=== PATIENT | female | born 1980 ===

== ENCOUNTER 2023-03-11 09:55 | Day surgery (SDC) | payer OTHER ==
[~2023-03-11] VITALS: Ht 167.6 cm; Wt 108.7 kg
[~2023-03-11 09:55] MED LIST: ALBU90OI INH
[2023-03-11] MEDS ORDERED: OMEP20ER PO (10:14)
[2023-03-11] MEDS ORDERED: CYCL10 PO (10:15)
[2023-03-11] MEDS ORDERED: Pepcid40 MG PO (10:15)
[2023-03-11 10:26] VITALS: BP 90/74
--- NOTE | 2023-03-11 10:43 | NUR ---
History, Chart, Medications and Allergies reviewed before start of procedure. Lungs clear T/O to Auscultation. Patient confirms NPO status and agrees with scheduled surgery. Pre-Op teaching done. Pt verbalizes understanding. Patient States Post-Procedure ride home has been arranged. PTS URINE TO [place], PT REPORTS THAT HER HAS HAD A VASECTOMY AND THAT THERE IS NO WAY SHE COULD BE . DISCUSSED WITH DR. HUNT. PT AGREES TO SIGN FORM FOR REFUSAL FOR TEST FOR ADDITIONAL SERUM BLOOD TESTING.
--- NOTE | 2023-03-11 11:22 | NUR ---
03/11/23 1122 Alphonso Deng History, Chart, Medications and Allergies reviewed before start of procedure. MONITOR INTACT WITH CONTINUOUS PULSE OXIMETRY, CONTINUOUS END TITAL CO2, AND INTERMITTENT BLOOD PRESSURE. 3-LEAD EKG REVIEWED WITH PHYSICIAN PRIOR TO START OF PROCEDURE. O2 VIA N/C INTACT THROUGHOUT SEDATION/PROCEDURE. Bite Block Placed.
[2023-03-11 11:39] VITALS: BP 102/52
[2023-03-11 11:48] VITALS: BP 104/76
--- NOTE | 2023-03-11 11:54 | NUR ---
Discharge instructions reviewed with patient. Patient verbalizes understanding. Copy given to patient to take home. Patient States Post-Procedure ride home has been arranged. T[employer]ER[employer]. Discharged via wheelchair to private car for ride home.
== END 2023-03-11 11:50 | disposition home or self-care (01) ==
LOC: ORSCMMR 09:55 → ORD 11:30 → ORSCMMR 11:30
PROVIDERS: Specialist
PROC: 0DB68ZX Excision of Stomach, Via Natural or Artificial Opening Endoscopic, Diagnostic (ICD-10-PCS; principal; 2023-03-11 11:30)
PROC: 0DB58ZX Excision of Esophagus, Via Natural or Artificial Opening Endoscopic, Diagnostic (ICD-10-PCS; principal; 2023-03-11 11:30)
DX: K21.9 Gastro-esophageal reflux disease without esophagitis (principal); K44.9 Diaphragmatic hernia without obstruction or gangrene; K22.10 Ulcer of esophagus without bleeding; E66.01 Morbid (severe) obesity due to excess calories; Z68.39 Body mass index [BMI] 39.0-39.9, adult; F17.210 Nicotine dependence, cigarettes, uncomplicated; Z79.899 Other long term (current) drug therapy
CPT/HCPCS: 88305; 88342; J2704; J7120

== ENCOUNTER 2023-07-05 19:06 | Emergency (ER) | payer OTHER ==
[~2023-07-05] VITALS: Ht 165.1 cm; Wt 106.6 kg
[~2023-07-05 19:06] MED LIST changes: +CYCL10 PO; +OMEP20ER PO; +Pepcid40 MG PO
[2023-07-05] MEDS ORDERED: Ketorolac Tromethamine 15mg Vial IV ONE (19:50)
[2023-07-05 20:00] LABS: BASOPHILS ABSOLUTE AUTO 0.05 K/mm3 (0.00-0.23); BASOPHILS PERCENT AUTO 0 % (0-2); EOSINOPHILS ABSOLUTE AUTO 0.21 K/mm3 (0.00-0.68); EOSINOPHILS PERCENT AUTO 2 % (0-6); Hematocrit 40.9 % (33.0-51.0); Hemoglobin 13.5 g/dL (11.5-16.0); IMMATURE GRAN ABSOLUTE AUTO 0.03 K/mm3 (0.00-0.10); IMMATURE GRAN PERCENT AUTO 0 % (0-1); LYMPHOCYTES ABSOLUTE AUTO 2.44 K/mm3 (0.84-5.20); LYMPHOCYTES PERCENT AUTO 21 % (21-46); MONOCYTES ABSOLUTE AUTO 0.59 K/mm3 (0.16-1.47); MONOCYTES PERCENT AUTO 5 % (4-13); Mean Corpuscular HGB 28.6 pg (26.0-34.0); Mean Corpuscular Volume 87 fL (80-100); Mean Platelet Volume 11.3 fL (9.1-12.4); NEUTROPHILS ABSOLUTE AUTO 8.25 K/mm3 (1.96-9.15); NEUTROPHILS PERCENT AUTO 71 % (41-73); Platelet Count 241 K/mm3 (150-400); RDW Coefficient Variation 13.5 % (11.7-14.2); RDW Standard Deviation 42.9 fL (35.1-46.3); Red Blood Cell Count 4.72 M/mm3 (3.80-5.20); White Blood Cell Count 11.57 K/mm3 (4.00-11.30)
[2023-07-05 20:20] LABS: Alanine Aminotransfer (ALT/SGP 21 U/L (12-78); Albumin, Blood 3.8 g/dL (3.4-5.0); Alk Phos 126 U/L (50-136); Anion Gap 1 mmol/L (6-16); Aspartate Aminotrans (AST/SGOT 8 U/L (12-37); Beta HCG, Quantitative, Serum <1 mIU/mL (0-3); Bilirubin, Total 0.5 mg/dL (0.1-1.0); Blood Urea Nitrogen 13 mg/dL (8-24); Bun/Creatinine Ratio 14.3 (12.0-20.0); CO2, Blood 28 mmol/L (21-32); Calcium, Blood 9.2 mg/dL (8.5-10.1); Chloride, Blood 109 mmol/L (98-108); Creatinine, Blood 0.91 mg/dL (0.40-1.00); Globulin, Blood 3.8 g/dL (2.2-4.0); Glomerular Filtration Rate 81 (60-); Glucose, Blood 114 mg/dL (70-99); Potassium, Blood 4.1 mmol/L (3.5-5.5); Sodium, Blood 138 mmol/L (136-145); Total Protein, Blood 7.6 g/dL (6.4-8.2)
[2023-07-05 20:40] LABS: Source, Urine Clean Catch
[2023-07-05 20:45] LABS: Bilirubin, Urine Neg (Neg); Blood, Urine Neg (Neg); Glucose Qualitative, Urine Neg (Neg); Ketones, Urine Neg (Neg); Leukocyte Esterase, Urine 1+ (Neg); Nitrite, Urine Neg (Neg); Protein, Urine Neg (Neg); Specific Gravity, Urine 1.015 (1.003-1.022); Urobilinogen, Urine NORM (Normal)
[2023-07-05 21:01] LABS: Appearance, Urine Clear (Clear); Color, Urine Yellow (P-Yellow)
[2023-07-05 21:02] LABS: Bacteria Few /hpf; Red Blood Cells, Urine 0-2 /hpf (0-2); Squamous Epithelial Cells Few /hpf (Few)
[2023-07-05] MEDS ORDERED: HYDROmorphone HCl/Pf 1MG SYR IV ONE (21:15)
[2023-07-05] MEDS ORDERED: Ondansetron HCl 2 MG / ML 2ML Vial IV ONE (22:35)
[2023-07-05] MEDS ORDERED: CefTRIAXone Sodium 1,000 MG in NS 50 ML IV ONE (22:35)
[2023-07-05] MEDS ORDERED: Morphine Sulfate 4 MG/1 ML Injection IV ONE (22:35)
[2023-07-06] MEDS ORDERED: Morphine Sulfate 10 MG/ML 1MLSYR IV ONE (00:40)
[2023-07-06] MEDS ORDERED: NS 1,000 ML IV SCH (00:40)
[2023-07-06 02:00] VITALS: BP 110/71
[2023-07-06] MEDS ORDERED: CEPH500 PO (02:51)
== END 2023-07-06 03:05 | disposition home or self-care (01) ==
LOC: ER 19:06
PROVIDERS: Student in an Organized Health Care Education/Training Program
DX: N39.0 Urinary tract infection, site not specified (principal); E86.0 Dehydration; D72.829 Elevated white blood cell count, unspecified; Z79.899 Other long term (current) drug therapy
CPT/HCPCS: 74177; 76830; 76856; 80053; 81001; 83690; 84702; 85025; 87086; 96361; 96365-59; 96375; 96376; 99284-25; A9270; J0696; J1170; J1885; J2270; J2405; J7030; Q9967

== ENCOUNTER → 2023-07-17 | Outpatient (CLI) | payer OTHER ==
[~2023-07-17] MED LIST changes: +CEPH500 PO
== END ==
LOC: LAB SHORT 12:10
DX: J02.9 Acute pharyngitis, unspecified (principal)
CPT/HCPCS: 87081

== ENCOUNTER → 2024-01-19 | Outpatient (CLI) | payer OTHER ==
[2024-01-19 19:54] LABS: Adenovirus F 40/41 Not Detected (NOT DETECT); Astrovirus Not Detected (NOT DETECT); Campylobacter Sp Not Detected (NOT DETECT); Cryptosporidium Not Detected (NOT DETECT); Cyclospora Cayetanensis Not Detected (NOT DETECT); E. Coli O157 Not Detected (NOT DETECT); Entamoeba Histolytica Not Detected (NOT DETECT); Enteroaggregative E. coli-EAEC Not Detected (NOT DETECT); Enteropathogenic E. coli-EPEC Not Detected (NOT DETECT); Enterotoxigenic E. coli-ETEC Not Detected (NOT DETECT); Giardia Lamblia Not Detected (NOT DETECT); Norovirus GI/GII Not Detected (NOT DETECT); Plesiomonas Shigelloides Not Detected (NOT DETECT); Rotavirus A Not Detected (NOT DETECT); Salmonella Sp Not Detected (NOT DETECT); Sapovirus Not Detected (NOT DETECT); Shiga Toxin-prod E. coli-STEC Not Detected (NOT DETECT); Shigella/Enteroin E. coli-EIEC Not Detected (NOT DETECT); Vibrio Cholerae Not Detected (NOT DETECT); Vibrio Sp Not Detected (NOT DETECT); Yersinia Enterocolitica Not Detected (NOT DETECT)
== END ==
LOC: LAB 15:07 → LAB SHORT 15:07
PROVIDERS: Family Medicine
DX: R10.9 Unspecified abdominal pain (principal)
CPT/HCPCS: 87507